=== PATIENT | female | born 2000 | race Two or more races ===

== ENCOUNTER 2023-03-15 03:44 | Emergency (ER) | payer SELFPAY ==
[~2023-03-15] VITALS: Ht 165.1 cm; Wt 70.0 kg
[2023-03-15 03:44] VITALS: O2SAT 100
[2023-03-15] MEDS: DONNATAL 5ml ORAL Elix (BELLADONNA ALK-PHENOBARB) PO ONE (04:15)
[2023-03-15] MEDS: LIDOCAINE VISCOUS 2% 15ML UD PO ONE (04:15)
[2023-03-15 04:32] LABS: Basophils # (auto) 0 10 ^3/uL (0-0.2); Basophils % (auto) 0.4 % (0.0-2.0); Eosinophils # (auto) 0.1 10 ^3/uL (0-0.8); Eosinophils % (auto) 0.8 % (0.0-7.0); Hematocrit 37.6 % (36.0-46.0); Hemoglobin 12.5 g/dL (12.2-16.2); Lymphocytes # (auto) 0.9 10 ^3/uL (0.4-5.4); Lymphocytes % (auto) 12.4 % (10.0-50.0); Mean Corpuscular Hemoglobin 30.1 pg (28.0-32.0); Mean Corpuscular Hgb Conc. 33.1 g/dL (32.0-36.0); Mean Corpuscular Volume 90.8 fL (80.0-100.0); Monocytes # (auto) 0.5 10 ^3/uL (0-1.3); Monocytes % (auto) 7.1 % (0.0-12.0); Neutrophils # (auto) 5.9 10 ^3/uL (1.6-8.6); Neutrophils % (auto) 79.3 % (37.0-80.0); Red Blood Cells 4.14 10^6/uL (4.0-5.20); Red Cell Distribution Width 14.1 % (11.8-14.3); White Blood Cell 7.4 10^3/uL (4.4-10.8)
[2023-03-15 04:46] LABS: Albumin 4.4 g/dL (3.2-4.8); Alkaline Phosphatase 80 U/L (46-116); Anion Gap 8 (5-15); Aspartate Aminotransferase 14 U/L (13-40); Blood Urea Nitrogen 10 mg/dL (9-23); Calcium 9.2 mg/dL (8.7-10.4); Carbon Dioxide 24 mmol/L (20-30); Chloride 107 mmol/L (98-107); Glucose 110 mg/dL (74-106); Lipase 48 U/L (12-53); Potassium 3.7 mmol/L (3.5-5.1); Sodium 139 mmol/L (136-145)
[2023-03-15 04:47] LABS: Bilirubin, Total 1.7 mg/dL (0.2-1.0); Total Protein 7.6 g/dL (5.7-8.2)
[2023-03-15 04:55] LABS: Alanine Aminotransferase 9 U/L (7-40)
[2023-03-15] MEDS ORDERED: ZOFR4T PO (05:03)
[2023-03-15] MEDS ORDERED: PANT40TA2 PO (05:03)
[2023-03-15] MEDS: ONDANSETRON ODT 4 MG TAB PO ONE (05:35)
[2023-03-15] MEDS: MAALOX PLUS or MAALOX 30 ML PO ONE (05:37)
[2023-03-15 06:17] VITALS: BP 120/165; PULSE 90; RESP 19; TEMP 98.7
== END 2023-03-15 05:48 | disposition home or self-care (01) ==
LOC: ER 03:44 → EDBD 03:44 → ER 05:48
DX: R10.11 Right upper quadrant pain (principal); R10.2 Pelvic and perineal pain; R10.12 Left upper quadrant pain; R11.2 Nausea with vomiting, unspecified; Z98.890 Other specified postprocedural states
CPT/HCPCS: 36415; 80053; 83690; 84702; 85025; 99283; Q0162